=== PATIENT | female | born 1990 | race Caucasian/White ===

== ENCOUNTER 2024-07-13 16:58 | Emergency (ER) | payer MEDICAID ==
[~2024-07-13] VITALS: Ht 152.4 cm; Wt 56.7 kg
[2024-07-13] MEDS ORDERED: ACETAMINOPHEN ES 500 MG TABLET ONE (17:27)
[2024-07-13] MEDS ORDERED: ONDANSETRON HCL/PF 4 MG/2 ML VIAL ONE (17:27)
[2024-07-13] MEDS: ONDANSETRON HCL/PF 4 MG/2 ML VIAL IVP ONE (17:34)
[2024-07-13] MEDS: ACETAMINOPHEN ES 500 MG TABLET PO ONE (17:34)
[2024-07-13] MEDS: IV NS 0.9% 1,000 ML IV ONE (17:34)
[2024-07-13] MEDS ORDERED: PSEU120T99 PO (17:49)
[2024-07-13] MEDS ORDERED: BENZ-13 PO (17:49)
[2024-07-13 18:32] VITALS: BP 106/72; TEMP 99.8; O2SAT 99
== END 2024-07-13 18:33 | disposition home or self-care (01) ==
LOC: ER 17:04
DX: J10.1 Influenza due to other identified influenza virus with other respiratory manifestations (principal); R05.9 Cough, unspecified; Z20.822 Contact with and (suspected) exposure to COVID-19
CPT/HCPCS: 99283; 96374; 96361; 87426; 87804 ×2; J2405; J7030